=== PATIENT | male | born 1995 | race Two or more races ===

== ENCOUNTER 2024-06-04 08:09 | Emergency (ER) | payer OTHER ==
[2024-06-04] MEDS ORDERED: AZITHROMYCIN 250 MG TABLET PO ONE (11:00)
== END 2024-06-04 11:01 | disposition home or self-care (01) ==
LOC: ER 08:14
DX: Z20.811 Contact with and (suspected) exposure to meningococcus (principal)

== ENCOUNTER 2025-02-24 12:29 | Emergency (ER) | payer OTHER ==
[~2025-02-24] VITALS: Ht 170.2 cm; Wt 90.7 kg
[~2025-02-24 12:29] MED LIST: CLOT15CR5 TP; TERB250T53 PO
[2025-02-24] MEDS ORDERED: ONDANSETRON HCL/PF 4 MG/2 ML VIAL ONE (12:58)
[2025-02-24] MEDS: IV NS 0.9% 1,000 ML BAG IV ONE (13:00)
[2025-02-24] MEDS: ONDANSETRON HCL/PF 4 MG/2 ML VIAL IVP ONE (13:01)
[2025-02-24 13:08] LABS: PLATELET COUNT (AUTO) 194 K/uL (150-450); RED BLOOD CELL COUNT(AUTO) 4.69 MIL/uL (4.5-6.0); RED CELL DISTRIBUTION WIDTH 13.7 % (11.5-15.0); WHITE BLOOD COUNT (AUTO) 10.3 K/uL (4.3-11.0)
[2025-02-24 13:16] LABS: APPEARANCE,URINE CLEAR (CLEAR); BLOOD, URINE NEGATIVE Ery/uL (NEGATIVE); LEUKOCYTE ESTERASE ,URINE NEGATIVE (NEGATIVE); NITRITE, URINE NEGATIVE (NEGATIVE); UGLUCOSE NEGATIVE (NEGATIVE)
[2025-02-24 13:26] LABS: ASPARTATE AMINOTRANSFERASE 19.0 U/L (15-37); CALCIUM, SERUM 9.0 mg/dL (8.5-10.1); CREATININE 1.0 mg/dL (0.6-1.3); SODIUM SERUM 140.0 mmol/L (136-145); TOTAL PROTEIN, SERUM 7.0 g/dL (6.4-8.2); UREA NITROGEN, BLOOD 12.0 mg/dL (7-18)
[2025-02-24] MEDS ORDERED: METR500T PO (14:07)
[2025-02-24] MEDS ORDERED: ONDA4TAB5 PO (14:07)
[2025-02-24] MEDS ORDERED: CIPR500T5 PO (14:07)
[2025-02-24 14:40] VITALS: BP 107/58; TEMP 98.2; O2SAT 96
== END 2025-02-24 14:36 | disposition home or self-care (01) ==
LOC: ER 12:32
DX: K57.32 Diverticulitis of large intestine without perforation or abscess without bleeding (principal); R11.0 Nausea
CPT/HCPCS: 99285; 74176; 96374; 96361; 85025; 80048; 83690; 80076; 81003; 36415; J2405; J7030